=== PATIENT | male | born 1970 | race Caucasian/White ===

== ENCOUNTER 2021-09-19 18:53 | Emergency (ER) | payer BC ==
[2021-09-19 19:01] VITALS: BMI 36.6
[2021-09-19] MEDS ORDERED: CLINDAMYCIN 600MG PREMIX IVPB 600 MG/50 ML BAG IVPB ONE ×2 (20:13→21:27)
[2021-09-19 22:05] LABS: BASO % 0.6 % (0-2.0); EOS % 1.3 % (0-4.5); HEMATOCRIT 38.8 % (35.4-49); HEMOGLOBIN 13.1 GM/dL (11.7-16.9); LYMPH % 16.8 % (8-40); MCH 27.2 pg (25.7-33.7); MCHC 33.7 g/dl (32.0-35.9); MEAN CELL VOLUME 80.7 fl (80-96); MONO % 7.7 % (3.8-10.2); NEUT % 73.6 % (42.8-82.8); PLATELET COUNT 575 10^3/uL (134-434); RDW 15.5 % (11.9-15.9); WHITE BLOOD COUNT 8.4 K/mm3 (4.0-10.0)
[2021-09-19 22:20] LABS: ALBUMIN 3.4 g/dl (3.4-5.0); CALCIUM 9.2 mg/dL (8.5-10.1)
[2021-09-19 22:24] LABS: CREATININE 1.1 mg/dL (0.55-1.3)
[2021-09-19 22:25] LABS: BILIRUBIN,TOTAL 0.2 mg/dL (0.2-1)
[2021-09-19 22:28] LABS: N-TERMINAL BNP 76.1 pg/ml (5-125)
[2021-09-19 22:47] LABS: EPI CELLS 3 /uL (0-25.1); HYALINE CASTS 0 /uL (0-3.1); URINE APPEARANCE CLEAR; URINE BACTERIA 4 /uL (0-1359); URINE BILIRUBIN NEGATIVE (NEGATIVE); URINE COLOR YELLOW; URINE GLUCOSE (UA) NEGATIVE (NEGATIVE); URINE KETONE NEGATIVE (NEGATIVE); URINE LEUK ESTERASE NEGATIVE (NEGATIVE); URINE NITRITE NEGATIVE (NEGATIVE); URINE PROTEIN NEGATIVE (NEGATIVE); URINE RBC 11 /uL (0-23.9); URINE UROBILINOGEN 0.2 mg/dL (0.2-1.0); URINE WBC 6 /uL (0-25.8)
[2021-09-19 23:04] VITALS: BP 135/73; PULSE 89; TEMP 98.1
== END 2021-09-19 23:02 | disposition home or self-care (01) ==
LOC: JER 18:53
DX: R22.43 Localized swelling, mass and lump, lower limb, bilateral (principal); L03.115 Cellulitis of right lower limb
CPT/HCPCS: 36415; 71046-TC-FY; 80053; 81003; 83880; 85025; 93970-TC; 99285-25